=== PATIENT | female | born 1940 | race Caucasian/White ===

== ENCOUNTER 2016-04-30 23:16 | Emergency (ER) | payer OTHER ==
[~2016-04-30] VITALS: Ht 157.5 cm; Wt 45.0 kg
[~2016-04-30 23:16] MED LIST: 24 HOUR ALLER15.8 ML BOTH NARES; ADULT LOW DOSE81 M1 PO; ARTHROTEC 75 MG; ARTHROTEC 751 TABLET GT; ARTHROTEC 751 TABLET PO; ARTHROTEC EC 71 EACH PO; ASPIR 8181 M1 PO; ASPIRIN E.C.81 M1 PO; ASPIRIN81 M1 PO; Antivert PO; Arthrotec 75 PO; Aspirin Chewable PO; BENTYL20 MG PO; CALCIUM PO; CIPRO500 MG PO; CLEOCIN PE75 MG/5 ML PO; CYANOCOBALAM1000 MCG PO; CYTOTEC200 MCG PO; Cytotec PO; DIFLUCAN10 MG/1 ML PO; DILAUDID2 MG PO; DOMP10T PO; EFFER-K 10 MEQ10 MEQ PO; ERYPED 400400 MG/5 M PO; ERYTHROCIN BAS250 MG PO; ERYTHROMYC PO; ESGIC 50-325-41 EACH PO; FEOSOL325 MG PO; FIORICET 50-321 EAC1 PO; FIORICET 50-321 EACH PO; FIORICET,ESG1 TABLET GT; FIORICET,ESG1 TABLET PO; FLEXERIL10 MG PO; FLEXERIL5 MG PO; FLONASE BOTH NARES; FLONASE16 G1 BOTH NARES; FLONASE16 G1 NS; FLORICAL CAPSU1 EACH PO; FLORINEF ACETA0.1 MG GT; FLORINEF ACETA0.1 MG PO; FLUCONAZOLE150 M1 PO; FLUDROCORTISON0.1 M1 PO; FOLIC ACID PO; FOLIC ACID0.4 MG PO; FOLIC ACID0.8 MG PO; FOLIC ACID1 MG PO; Fioricet,Esgic,Repan PO; Flexeril PO; Flonase BOTH NARES; Florinef Acetate PO; Folvite PO; GAVISCON LIQUI355 ML PO; HYOSCYAMINE0.125 M2 PO; IRON325 M1 PO; ISORDIL,SORBITRA5 MG PO; K-DUR10 ME1 PO; K-DUR20 MEQ PO; K-TAB10 MEQ PO; KLOR-CON 1010 ME1 PO; LACTAID9000 UNIT PO; LACTINEX PACKE1 EACH PO; LEVAQUIN500 MG PO; LEVBID0.375 MG PO; LEVSIN0.125 MG SL; LEXAPRO PO; LEXAPRO20 MG PO; LIDOCAINE700 MG TD; LIDODERM 5% P1 PATCH TD; LIPITOR PO; LIPITOR40 MG GT; LIPITOR40 MG PO; LO-DOSE ASPIRIN81 M2 GT; LOW DOSE ASPIRI81 M1 PO; Levsin PO; Lexapro PO; Lipitor PO; MECLIZINE HCL12.5 M1 GT; MECLIZINE HCL12.5 M1 PO; MIDODRINE HCL5 MG PO; MIRALAX17 GM PO; MUPIROCIN22 GM TP; Micro-K,K-Tab,K-Dur, PO; NEURONTIN100 MG GT; NEURONTIN100 MG PO; NIZORAL 2% CREA15 GM TP; NUCYNTA75 MG PO; Oyst-Cal D, Oscal W/ PO; PHENOBARBITAL PO; PHENOBARBITAL30 MG PO; PHENOBARBITAL32.4 MG PO; PHENOBARBITAL64.8 MG PO; PHENobarbital PO; POTASSIUM PO; PREVACID PO; PREVACID30 MG GT; PREVACID30 MG PO; PROAMATINE5 M1 PO; PROAMATINE5 MG PO; PROTOPIC 0.1% O30 GM PO; Phenobarbital PO; Prevacid PO; Proamatine PO; SINEMET 25-1001 EACH PO; STALEVO 150 TA1 EACH PO; STALEVO 1501 TAB PO; STALEVO PO; SYSTANE BALANCE10 ML BOTH EYES; TOPICORT 0.25%60 GM TP; ULTRAM ER200 MG PO; ULTRAM50 MG GT; ULTRAM50 MG PO; URECHOLINE25 MG PO; VALIUM2 MG PO; VALTREX1000 MG PO; VITAMIN B-122000 MCG PO; VITAMIN B-12500 MC2 PO; VITAMIN B12 500 MCG PO; VITAMIN D-32000 UNI2 PO; VITAMIN D1000 INTUN PO; VITAMIN D2000 INTUN PO; VITAMIN D31000 UNIT PO; VIVELLE-DOT0.05 MG PO; ZANTAC150 MG PO; ZANTAC300 MG GT; ZANTAC300 MG PO; ZOFRAN ODT8 MG PO; ZOFRAN4 MG GT; ZOFRAN4 MG PO; Zantac PO; Zofran PO; [UNRECOGNIZED DRUG - OTHER] PO
[2016-05-01 00:47] LABS: EOSINOPHIL (%) 7.3 % (0-5); EOSINOPHIL COUNT 0.4 K/uL (0-0.3); IMMATURE GRANULOCYTE (%) 0.2 % (0.0-0.7); IMMATURE GRANULOCYTE COUNT 0.1 K/uL; LYMPHOCYTE COUNT 1.1 K/uL (1.0-2.8); MCHC 32.2 G/DL (30.0-36.0); MCV 102.6 FL (83-99); MEAN PLAT.VOLUME 9.5 uM^3 (9.5-12.4); MONOCYTE (%) 8.6 % (3-12); MONOCYTE COUNT 0.5 K/uL (0-0.8); NEUTROPHIL (%) 65.8 % (45-76); PLATELET COUNT 272 K/uL (156-360); RBC DIS.WIDTH-CV 11.9 % (11.8-14.6); RBC DIS.WIDTH-SD 42.5 % (39-53); RED BLOOD COUNT 3.12 M/uL (3.80-5.20); WHITE BLOOD COUNT 6.1 K/uL (4.1-10.2)
[2016-05-01 00:55] LABS: CHLORIDE 108 mEq/L (99-109); POTASSIUM 3.5 mEq/L (3.7-5.4); SODIUM 145 mEq/L (136-147)
[2016-05-01 00:57] LABS: GLUCOSE 101 mg/dL (70-99)
[2016-05-01 00:58] LABS: ANION GAP 10 MEQ/L (2-14)
[2016-05-01 00:59] LABS: TOTAL BILIRUBIN 0.3 mg/dL (0.0-1.0)
[2016-05-01 01:01] LABS: ALKALINE PHOSPHATASE 81 IU/L (3-129); GFR ESTIMATE (CALCULATED) > 59 mL/min/
[2016-05-01 01:02] LABS: UREA NITROGEN (BUN) 15 mg/dL (9-23)
[2016-05-01 01:04] LABS: LIPASE 113 U/L (1.0-51.0)
[2016-05-01] MEDS ORDERED: NYSTATIN15 GM TP (01:53)
[2016-05-01 02:10] VITALS: BP 117/80
== END 2016-05-01 02:44 | disposition home or self-care (01) ==
LOC: EME 23:16
PROVIDERS: Emergency Medicine
DX: B37.89 Other sites of candidiasis (principal); D64.9 Anemia, unspecified; R74.8 Abnormal levels of other serum enzymes; K94.23 Gastrostomy malfunction; G20 Parkinson's disease; E78.5 Hyperlipidemia, unspecified; Z79.82 Long term (current) use of aspirin
CPT/HCPCS: 74022; 80053; 83690; 85025; 99281; 99283

== ENCOUNTER 2016-06-06 20:19 | Emergency (ER) | payer OTHER ==
[~2016-06-06] VITALS: Ht 157.5 cm; Wt 49.9 kg
[~2016-06-06 20:19] MED LIST changes: +NYSTATIN15 GM TP
[2016-06-06 21:21] LABS: MCH 32.8 PG (29.0-34.0); MCHC 32.3 G/DL (30.0-36.0); MCV 101.4 FL (83-99); MEAN PLAT.VOLUME 9.7 uM^3 (9.5-12.4); PLATELET COUNT 228 K/uL (156-360); RBC DIS.WIDTH-CV 11.2 % (11.8-14.6); RBC DIS.WIDTH-SD 41.8 % (39-53); RED BLOOD COUNT 2.96 M/uL (3.80-5.20)
[2016-06-06 21:23] LABS: WHITE BLOOD COUNT 4.2 K/uL (4.1-10.2)
[2016-06-06 21:36] LABS: CHLORIDE 111 mEq/L (99-109); POTASSIUM 4.2 mEq/L (3.7-5.4); SODIUM 143 mEq/L (136-147)
[2016-06-06 21:38] LABS: GLUCOSE 100 mg/dL (70-99)
[2016-06-06 21:39] LABS: ANION GAP 9 MEQ/L (2-14)
[2016-06-06 21:42] LABS: GFR ESTIMATE (CALCULATED) > 59 mL/min/; UREA NITROGEN (BUN) 16 mg/dL (9-23)
[2016-06-06 21:48] LABS: TROP-I INTERPRETATION NEGATIVE; TROPONIN-I < 0.01 ng/mL (0.0-0.30)
[2016-06-06 22:50] VITALS: BP 90/52
== END 2016-06-06 22:51 | disposition home or self-care (01) ==
LOC: EME → EDBD 20:19 → EME 22:51
DX: R42 Dizziness and giddiness (principal); D64.9 Anemia, unspecified; G20 Parkinson's disease; R06.02 Shortness of breath; R07.9 Chest pain, unspecified; R00.2 Palpitations; E78.5 Hyperlipidemia, unspecified; Z93.1 Gastrostomy status; Z79.82 Long term (current) use of aspirin
CPT/HCPCS: 71020; 80048 91; 84484; 85027; 93005; 99281; 99285

== ENCOUNTER 2016-08-24 18:59 | Observation (INO) | payer OTHER ==
[~2016-08-24] VITALS: Ht 157.5 cm; Wt 49.4 kg
[~2016-08-24 18:59] MED LIST changes: -ARTHROTEC 751 TABLET GT; -FIORICET,ESG1 TABLET GT; -FLORINEF ACETA0.1 MG GT; +K-DUR10 MEQ PO; -LIPITOR40 MG GT; -LO-DOSE ASPIRIN81 M2 GT; +LO-DOSE ASPIRIN81 M2 PO; -NEURONTIN100 MG GT; -PREVACID30 MG GT; -ZOFRAN4 MG GT
[2016-08-24 19:54] LABS: HEMATOCRIT 32.5 % (36.0-46.0); MCH 30.8 PG (29.0-34.0); MCHC 32.3 G/DL (30.0-36.0); MCV 95.3 FL (83-99); MEAN PLAT.VOLUME 9.8 uM^3 (9.5-12.4); PLATELET COUNT 178 K/uL (156-360); RBC DIS.WIDTH-CV 13.6 % (11.8-14.6); RBC DIS.WIDTH-SD 48.1 % (39-53); RED BLOOD COUNT 3.41 M/uL (3.80-5.20)
[2016-08-24 20:02] LABS: WHITE BLOOD COUNT 6.5 K/uL (4.1-10.2)
[2016-08-24 20:03] LABS: CHLORIDE 107 mEq/L (99-109); POTASSIUM 3.5 mEq/L (3.7-5.4); SODIUM 140 mEq/L (136-147)
[2016-08-24 20:05] LABS: GLUCOSE 124 mg/dL (70-99)
[2016-08-24 20:07] LABS: ANION GAP 6 MEQ/L (2-14); TOTAL BILIRUBIN 0.3 mg/dL (0.0-1.0)
[2016-08-24 20:09] LABS: ALKALINE PHOSPHATASE 54 IU/L (3-129); GFR ESTIMATE (CALCULATED) > 59 mL/min/
[2016-08-24 20:10] LABS: UREA NITROGEN (BUN) 20 mg/dL (9-23)
[2016-08-24 20:12] LABS: LIPASE 43 U/L (1.0-51.0)
[2016-08-24 22:19] LABS: ADD MIUA? NO; BILIRUBIN NEGATIVE; BLOOD NEGATIVE; GLUCOSE (STRIP) NEGATIVE; KETONES NEGATIVE; LEUKOCYTES NEGATIVE; NITRITE NEGATIVE; PROTEIN (STRIP) NEGATIVE; SPECIFIC GRAVITY 1.008 (1.000-1.030); UCUL ADDED? NO; UROBILINOGEN 0.2 MG/DL (0.2-1.0)
[2016-08-24 22:21] LABS: COLOR YELLOW ((YELLOW))
[2016-08-25 00:34] VITALS: BP 102/53
[2016-08-25] MEDS ORDERED: ULTRAM50 MG PO (00:37)
[2016-08-25] MEDS ORDERED: NEURONTIN100 MG PO (01:10)
[2016-08-25 08:30] VITALS: BP 90/47
[2016-08-25] MEDS ORDERED: ARTHROTEC 751 TABLET PO (10:15)
[2016-08-25] MEDS ORDERED: GABAPENTIN100 MG PO (10:18)
[2016-08-25] MEDS ORDERED: K-TAB10 MEQ PO (10:25)
[2016-08-25] MEDS ORDERED: MIRALAX255 GM PO (10:26)
[2016-08-25] MEDS ORDERED: LIDOCAINE-PRIL1 EACH TP (10:27)
[2016-08-25] MEDS ORDERED: STALEVO 1501 TAB PO ×3 (10:49→10:50)
[2016-08-25 11:49] VITALS: BP 99/52
== END 2016-08-25 12:47 | disposition home or self-care (01) ==
LOC: EME 18:59 → EDOF 23:10 → 5WEST 23:10
PROVIDERS: Emergency Medicine
DX: K52.9 Noninfective gastroenteritis and colitis, unspecified (principal); E86.0 Dehydration; G20 Parkinson's disease; I50.9 Heart failure, unspecified; E78.5 Hyperlipidemia, unspecified; G43.909 Migraine, unspecified, not intractable, without status migrainosus; K21.9 Gastro-esophageal reflux disease without esophagitis; F41.9 Anxiety disorder, unspecified; R13.10 Dysphagia, unspecified; K57.30 Diverticulosis of large intestine without perforation or abscess without bleeding; K59.00 Constipation, unspecified; G90.3 Multi-system degeneration of the autonomic nervous system; G62.9 Polyneuropathy, unspecified; K31.84 Gastroparesis; M41.9 Scoliosis, unspecified; E03.9 Hypothyroidism, unspecified; F43.10 Post-traumatic stress disorder, unspecified; I95.1 Orthostatic hypotension; E55.9 Vitamin D deficiency, unspecified; E53.8 Deficiency of other specified B group vitamins
CPT/HCPCS: 74176; 80053; 81003; 83690; 85027; 93005; 99281; 99285; G0378; J2405; J7030

== ENCOUNTER 2016-09-27 18:58 | Emergency (ER) | payer OTHER ==
[~2016-09-27] VITALS: Ht 157.5 cm; Wt 54.9 kg
[~2016-09-27 18:58] MED LIST changes: +DESONIDE TP; +ELIDEL 1% CREAM30 GM TP; +GABAPENTIN100 MG PO; +LEXAPRO10 MG PO; +LIDOCAINE-PRIL1 EACH TP; +MIRALAX255 GM PO
[2016-09-27 20:29] LABS: ADD MIUA? YES; BILIRUBIN NEGATIVE; BLOOD SMALL; COLOR AMBER ((YELLOW)); GLUCOSE (STRIP) NEGATIVE; KETONES NEGATIVE; LEUKOCYTES TRACE; NITRITE NEGATIVE; PROTEIN (STRIP) NEGATIVE; UROBILINOGEN 0.2 MG/DL (0.2-1.0)
[2016-09-27 20:35] LABS: BACTERIA NONE SEEN /HPF; EPITHELIAL CELLS RARE /HPF; MUCUS TRACE /LPF; RED BLOOD CELLS 0-5 /HPF (0-5); UCUL ADDED? NO
[2016-09-27 20:50] LABS: HEMATOCRIT 30.4 % (36.0-46.0); MCH 31.4 PG (29.0-34.0); MCHC 32.6 G/DL (30.0-36.0); MCV 96.5 FL (83-99); MEAN PLAT.VOLUME 9.6 uM^3 (9.5-12.4); PLATELET COUNT 227 K/uL (156-360); RBC DIS.WIDTH-CV 13.6 % (11.8-14.6); RBC DIS.WIDTH-SD 48.1 % (39-53); RED BLOOD COUNT 3.15 M/uL (3.80-5.20); WHITE BLOOD COUNT 6.8 K/uL (4.1-10.2)
[2016-09-27 21:01] LABS: CHLORIDE 106 mEq/L (99-109); SODIUM 140 mEq/L (136-147)
[2016-09-27 21:02] LABS: GLUCOSE 107 mg/dL (70-99)
[2016-09-27 21:04] LABS: ANION GAP 9 MEQ/L (2-14)
[2016-09-27 21:06] LABS: GFR ESTIMATE (CALCULATED) 57 mL/min/
[2016-09-27 21:07] LABS: UREA NITROGEN (BUN) 17 mg/dL (9-23)
[2016-09-27 21:11] LABS: TROP-I INTERPRETATION NEGATIVE; TROPONIN-I < 0.01 ng/mL (0.0-0.30)
[2016-09-27] MEDS ORDERED: CEFPODOXIME PR100 MG PO (21:32)
[2016-09-27] MEDS ORDERED: CIPRO500 MG PO (21:53)
[2016-09-27 22:40] VITALS: BP 92/55
== END 2016-09-27 22:40 | disposition home or self-care (01) ==
LOC: EME 18:58
PROVIDERS: Emergency Medicine
DX: E86.0 Dehydration (principal); N39.0 Urinary tract infection, site not specified; R55 Syncope and collapse; G20 Parkinson's disease; Z87.442 Personal history of urinary calculi; Z79.82 Long term (current) use of aspirin; Z88.5 Allergy status to narcotic agent; Z88.0 Allergy status to penicillin
CPT/HCPCS: 70450; 80048; 81003; 84484; 85027; 93005; 99281; 99285; J7030

== ENCOUNTER 2017-02-17 23:17 | Emergency (ER) | payer OTHER ==
[~2017-02-17] VITALS: Ht 157.5 cm; Wt 48.7 kg
[~2017-02-17 23:17] MED LIST changes: +ACLOVATE15 G1 TP; +CEFPODOXIME PR100 MG PO; +FLUOCINONIDE120 GM TP; +LIDOCAINE 5%; +LIPITOR20 MG PO; +OTEZLA30 MG PO; +ZOFRAN ODT4 MG PO
[2017-02-18 00:51] LABS: ADD MIUA? YES; BILIRUBIN NEGATIVE; BLOOD SMALL; COLOR AMBER ((YELLOW)); GLUCOSE (STRIP) NEGATIVE; KETONES 5; LEUKOCYTES NEGATIVE; NITRITE NEGATIVE; PROTEIN (STRIP) NEGATIVE; SPECIFIC GRAVITY 1.018 (1.000-1.030); UROBILINOGEN 0.2 MG/DL (0.2-1.0)
[2017-02-18 00:57] LABS: BACTERIA NONE SEEN /HPF; EPITHELIAL CELLS RARE /HPF; HYALINE CASTS 15-20 /LPF; MUCUS TRACE /LPF; RED BLOOD CELLS 0-5 /HPF (0-5); UCUL ADDED? NO; WHITE BLOOD CELLS 0-5 /HPF (0-5)
[2017-02-18 01:19] LABS: BASOPHIL COUNT 0.1 K/uL (0-0.1); EOSINOPHIL (%) 9.4 % (0-5); EOSINOPHIL COUNT 0.7 K/uL (0-0.3); HEMATOCRIT 36.4 % (36.0-46.0); IMMATURE GRANULOCYTE (%) 0.4 % (0.0-0.7); INSTRUMENT ABS NEUTROPHIL CT 4.3 K/uL; LYMPHOCYTE COUNT 1.5 K/uL (1.0-2.8); MCH 31.6 PG (29.0-34.0); MCHC 32.4 G/DL (30.0-36.0); MCV 97.3 FL (83-99); MEAN PLAT.VOLUME 9.9 uM^3 (9.5-12.4); MONOCYTE (%) 9.2 % (3-12); MONOCYTE COUNT 0.7 K/uL (0-0.8); NEUTROPHIL (%) 60.2 % (45-76); NEUTROPHIL COUNT 4.3 K/uL (1.8-6.4); PLATELET COUNT 229 K/uL (156-360); RBC DIS.WIDTH-CV 13.3 % (11.8-14.6); RBC DIS.WIDTH-SD 47.9 % (39-53); RED BLOOD COUNT 3.74 M/uL (3.80-5.20); WHITE BLOOD COUNT 7.2 K/uL (4.1-10.2)
[2017-02-18 01:28] LABS: CHLORIDE 107 mEq/L (99-109); POTASSIUM 3.9 mEq/L (3.7-5.4); SODIUM 140 mEq/L (136-147)
[2017-02-18 01:30] LABS: GLUCOSE 96 mg/dL (70-99)
[2017-02-18 01:31] LABS: ANION GAP 8 MEQ/L (2-14)
[2017-02-18 01:32] LABS: TOTAL BILIRUBIN 0.2 mg/dL (0.0-1.0)
[2017-02-18 01:33] LABS: ALKALINE PHOSPHATASE 75 IU/L (3-129)
[2017-02-18 01:34] LABS: GFR ESTIMATE (CALCULATED) > 59 mL/min/
[2017-02-18 01:35] LABS: DIRECT BILIRUBIN 0.1 mg/dL (0.0-0.3); UREA NITROGEN (BUN) 16 mg/dL (9-23)
[2017-02-18 01:37] LABS: LIPASE 45 U/L (1.0-51.0)
[2017-02-18 01:39] LABS: TROP-I INTERPRETATION NEGATIVE; TROPONIN-I < 0.01 ng/mL (0.0-0.30)
[2017-02-18] MEDS ORDERED: COLACE100 MG PO (04:45)
[2017-02-18 05:38] VITALS: BP 107/58
[2017-02-20] MEDS ORDERED: OTEZLA30 MG PO ×3 (14:21→14:35)
== END 2017-02-18 05:40 | disposition home or self-care (01) ==
LOC: EME 23:17
PROVIDERS: Emergency Medicine
DX: R55 Syncope and collapse (principal); K59.00 Constipation, unspecified; R10.9 Unspecified abdominal pain; G20 Parkinson's disease; K21.9 Gastro-esophageal reflux disease without esophagitis; E78.5 Hyperlipidemia, unspecified; F41.9 Anxiety disorder, unspecified; Z87.442 Personal history of urinary calculi; Z85.9 Personal history of malignant neoplasm, unspecified; Z91.040 Latex allergy status; Z88.5 Allergy status to narcotic agent; Z88.2 Allergy status to sulfonamides; Z88.0 Allergy status to penicillin; Z88.8 Allergy status to other drugs, medicaments and biological substances
CPT/HCPCS: 74176; 80048; 80076; 81003; 83690; 84484; 85025; 93005; 99281; 99285; J2270; J2405; J7030

== ENCOUNTER 2017-04-16 18:27 | Emergency (ER) | payer OTHER ==
[~2017-04-16] VITALS: Ht 157.5 cm; Wt 32.6 kg
[~2017-04-16 18:27] MED LIST changes: +COLACE100 MG PO; +METHOTREXATE2.5 MG PO; +PROTOPIC 0.1% O30 GM TP
[2017-04-16 19:17] LABS: HEMATOCRIT 29.7 % (36.0-46.0); MCH 32.1 PG (29.0-34.0); MCHC 33.3 G/DL (30.0-36.0); MCV 96.4 FL (83-99); PLATELET COUNT 244 K/uL (156-360); RBC DIS.WIDTH-CV 13.6 % (11.8-14.6); RBC DIS.WIDTH-SD 47.8 % (39-53); RED BLOOD COUNT 3.08 M/uL (3.80-5.20); WHITE BLOOD COUNT 5.4 K/uL (4.1-10.2)
[2017-04-16 19:22] LABS: HEMOGLOBIN 9.9 G/DL (11.9-15.5)
[2017-04-16 19:30] LABS: CHLORIDE 104 mEq/L (99-109); POTASSIUM 3.9 mEq/L (3.7-5.4); SODIUM 137 mEq/L (136-147)
[2017-04-16 19:32] LABS: GLUCOSE 106 mg/dL (70-99); TROP-I INTERPRETATION NEGATIVE; TROPONIN-I < 0.01 ng/mL (0.0-0.30)
[2017-04-16 19:36] LABS: CREATININE 0.9 mg/dL (0.6-1.3); GFR ESTIMATE (CALCULATED) > 59 mL/min/
[2017-04-16 19:37] LABS: UREA NITROGEN (BUN) 13 mg/dL (9-23)
[2017-04-17 01:24] VITALS: BP 97/53
== END 2017-04-17 01:23 | disposition home or self-care (01) ==
LOC: EME 18:27
PROVIDERS: Emergency Medicine Emergency Medical Services
DX: E86.0 Dehydration (principal); B34.9 Viral infection, unspecified; D64.9 Anemia, unspecified; G20 Parkinson's disease; I50.9 Heart failure, unspecified; E78.5 Hyperlipidemia, unspecified; F41.9 Anxiety disorder, unspecified; K21.9 Gastro-esophageal reflux disease without esophagitis; G89.29 Other chronic pain; Z79.82 Long term (current) use of aspirin; Z88.2 Allergy status to sulfonamides; Z88.5 Allergy status to narcotic agent; Z88.0 Allergy status to penicillin; Z88.8 Allergy status to other drugs, medicaments and biological substances
CPT/HCPCS: 80048; 84484; 85027; 93005; 99281; 99285; J2405; J7040

== ENCOUNTER 2017-08-23 18:05 | Observation (INO) | payer OTHER ==
[~2017-08-23] VITALS: Ht 157.5 cm; Wt 51.2 kg
[~2017-08-23 18:05] MED LIST changes: +DIFLUCAN100 MG PO; +DOXYCYCLINE HY100 MG PO
[2017-08-23 19:59] LABS: APPEARANCE CLEAR ((CLEAR)); BILIRUBIN NEGATIVE; BLOOD SMALL; COLOR AMBER ((YELLOW)); GLUCOSE (STRIP) NEGATIVE; KETONES 20; LEUKOCYTES NEGATIVE; NITRITE NEGATIVE; PROTEIN (STRIP) 30; SPECIFIC GRAVITY 1.017 (1.000-1.030); UROBILINOGEN 0.2 MG/DL (0.2-1.0)
[2017-08-23 20:07] LABS: BACTERIA NONE SEEN /HPF; EPITHELIAL CELLS RARE /HPF; HYALINE CASTS 20-30 /LPF; MUCUS TRACE /LPF; UCUL ADDED? YES
[2017-08-23 21:06] LABS: HEMATOCRIT 28.9 % (36.0-46.0); HEMOGLOBIN 9.8 G/DL (11.9-15.5); MCH 33.4 PG (29.0-34.0); MCHC 33.9 G/DL (30.0-36.0); MCV 98.6 FL (83-99); PLATELET COUNT 181 K/uL (156-360); RBC DIS.WIDTH-CV 13.2 % (11.8-14.6); RBC DIS.WIDTH-SD 47.4 % (39-53); RED BLOOD COUNT 2.93 M/uL (3.80-5.20); WHITE BLOOD COUNT 5.6 K/uL (4.1-10.2)
[2017-08-23 21:17] LABS: ALBUMIN 3.9 g/dL (3.2-4.8); CHLORIDE 106 mEq/L (99-109); POTASSIUM 3.3 mEq/L (3.7-5.4); SODIUM 140 mEq/L (136-147)
[2017-08-23 21:20] LABS: TOTAL PROTEIN 6.4 g/dL (6.4-8.3)
[2017-08-23 21:21] LABS: GLUCOSE 100 mg/dL (70-99)
[2017-08-23 21:22] LABS: TOTAL BILIRUBIN 0.4 mg/dL (0.0-1.0)
[2017-08-23 21:23] LABS: ALKALINE PHOSPHATASE 65 IU/L (3-129); CREATININE 0.7 mg/dL (0.6-1.3); GFR ESTIMATE (CALCULATED) > 59 mL/min/
[2017-08-23 21:24] LABS: UREA NITROGEN (BUN) 9 mg/dL (9-23)
[2017-08-23 21:25] LABS: AST (GOT) 11 IU/L (2-34)
[2017-08-23 21:26] LABS: ALT (GPT) < 3 IU/L (3-49)
[2017-08-23 21:27] LABS: LIPASE 53 U/L (1.0-51.0); TROP-I INTERPRETATION NEGATIVE; TROPONIN-I < 0.01 ng/mL (0.0-0.30)
[2017-08-24 02:00] VITALS: BP 131/60
[2017-08-24] MEDS ORDERED: ANTIVERT12.5 MG PO (02:36)
[2017-08-24 05:24] VITALS: BP 97/52
[2017-08-24 08:13] LABS: HEMATOCRIT 28.8 % (36.0-46.0); HEMOGLOBIN 9.4 G/DL (11.9-15.5); MCH 32.4 PG (29.0-34.0); MCHC 32.6 G/DL (30.0-36.0); MCV 99.3 FL (83-99); PLATELET COUNT 185 K/uL (156-360); RBC DIS.WIDTH-CV 13.1 % (11.8-14.6); WHITE BLOOD COUNT 4.5 K/uL (4.1-10.2)
[2017-08-24 09:26] LABS: ALBUMIN 3.5 G/DL (3.2-4.8); ALKALINE PHOSPHATASE 55 IU/L (3-129); AST (GOT) 8 IU/L (2-34); CHLORIDE 113 MEQ/L (99-109); CREATININE 0.6 MG/DL (0.6-1.3); GFR ESTIMATE (CALCULATED) > 59 mL/min/; GLUCOSE 98 mg/dL (70-99); POTASSIUM 3.8 MEQ/L (3.7-5.4); SODIUM 145 MEQ/L (136-147); TOTAL BILIRUBIN 0.4 MG/DL (0.0-1.0); UREA NITROGEN (BUN) 6 mg/dL (9-23)
[2017-08-24 09:27] LABS: ALT (GPT) < 3 IU/L (3-49)
[2017-08-24 11:22] VITALS: BP 97/52
[2017-08-24] MEDS ORDERED: ONDANSETRON HCL4 MG PO (15:04)
[2017-08-24] MEDS ORDERED: DICLOFENAC SOD100 G1 TP (15:05)
[2017-08-24] MEDS ORDERED: BUSPAR5 MG PO (15:06)
[2017-08-24 15:48] VITALS: BP 87/52
[2017-08-24 19:51] VITALS: BP 125/61
[2017-08-25 00:06] VITALS: BP 90/55
[2017-08-25 03:56] VITALS: BP 98/55
[2017-08-25 08:30] VITALS: BP 93/53
[2017-08-25 11:11] VITALS: BP 114/56
[2017-08-25 13:35] VITALS: BP 94/53
== END 2017-08-25 17:45 | disposition home or self-care (01) ==
LOC: EME 18:05 → EDOF 23:51 → 4SOUTH 23:51 → EDOF 23:51 → ENRESERV 08-24 00:02 → 4SOUTH 08-24 01:43
PROVIDERS: Internal Medicine; Nurse Practitioner Adult Health; Physician Assistant
DX: R11.2 Nausea with vomiting, unspecified (principal); R55 Syncope and collapse; K29.60 Other gastritis without bleeding; R13.10 Dysphagia, unspecified; K22.4 Dyskinesia of esophagus; K31.84 Gastroparesis; G20 Parkinson's disease; G90.3 Multi-system degeneration of the autonomic nervous system; D64.9 Anemia, unspecified; I11.0 Hypertensive heart disease with heart failure; I50.9 Heart failure, unspecified; E78.5 Hyperlipidemia, unspecified; K21.9 Gastro-esophageal reflux disease without esophagitis; F41.9 Anxiety disorder, unspecified; F32.9 Major depressive disorder, single episode, unspecified; Z87.442 Personal history of urinary calculi; Z90.710 Acquired absence of both cervix and uterus; Z88.0 Allergy status to penicillin; Z88.2 Allergy status to sulfonamides; Z88.5 Allergy status to narcotic agent; Z88.8 Allergy status to other drugs, medicaments and biological substances; Z91.018 Allergy to other foods
CPT/HCPCS: 70450; 71046; 74176; 80053; 81003; 82948; 83690; 84484; 85027; 87086; 88305; 88342 TC; 93005; 99281; 99285; A6214; G0378; G8978 GP CJ; G8979 GP CI; G8980 CJ; G8987 GO CJ; G8988 CI; G8989 CJ; J0696; J2270; J2405; J7030